=== PATIENT | male | born 1990 | race Two or more races ===

== ENCOUNTER 2024-05-21 02:10 | Inpatient (IN) | payer MEDICAID ==
[~2024-05-21] VITALS: Ht 172.7 cm; Wt 93.7 kg
[2024-05-21 02:39] LABS: COVID AG,FIA SOURCE NASAL SWAB
[2024-05-21 02:40] LABS: BASOPHILS % (AUTO) 0.6 % (0.0-2.0); EOSINOPHILS % (AUTO) 1.8 % (1.0-6.0); HEMATOCRIT 43.2 % (41-53); HEMOGLOBIN 14.6 g/dL (13.5-17.5); LYMPHOCYTES % (AUTO) 22.8 % (22.0-44.0); MEAN CORPUSCULAR HEMOGLOBIN 29.6 pg (26.0-34.0); MEAN CORPUSCULAR HGB CONC 33.8 G/dL (31.0-37.0); MEAN CORPUSCULAR VOLUME 88 fL (80-100); MONOCYTES # (AUTO) 0.5 K/uL (0.1-1.0); MONOCYTES % (AUTO) 5.7 % (2.0-9.0); NEUTROPHILS % (AUTO) 69.1 % (40.0-70.0); PLATELET COUNT (AUTO) 267 K/uL (150-450); RED BLOOD CELL COUNT(AUTO) 4.94 MIL/uL (4.50-5.90); RED CELL DISTRIBUTION WIDTH 13.1 % (11.5-14.5); WHITE BLOOD COUNT (AUTO) 8.7 K/uL (4.5-11.0)
[2024-05-21] MEDS: LORazepam 2 MG TABLET PO ONE (02:44)
[2024-05-21] MEDS: HALOPERIDOL 5 MG TABLET PO ONE (02:44)
[2024-05-21] MEDS: DiphenhydrAMINE HCL 25 MG CAPSULE PO ONE (02:44)
[2024-05-21 02:52] LABS: ANION GAP 9 mmol/L (8-16); CALCIUM, TOTAL 9.1 mg/dL (8.8-10.5); CARBON DIOXIDE 24 mmol/L (22-29); CHLORIDE 104 mmol/L (98-107); CREATININE 0.73 mg/dL (0.60-1.30); GLOMERULAR FILTR. RATE CALC > 60 mL/min (>60); GLUCOSE,RANDOM 105 mg/dL (70-110); POTASSIUM 3.8 mmol/L (3.5-5.1); SODIUM SERUM 137 mmol/L (136-145); UREA NITROGEN, BLOOD 15 mg/dL (7-18)
[2024-05-21 02:56] LABS: SARS-COV2 (COVID) ANTIGEN,FIA Negative (Negative)
[2024-05-21 02:57] LABS: ALCOHOL, BLOOD (SERUM) < 3 mg/dL (0-10)
[2024-05-21] MEDS ORDERED: ZOLPIDEM TARTRATE 10 MG TABLET PO PRN (03:30)
[2024-05-21 11:26] VITALS: BP 141/78; PULSE 92; RESP 18; TEMP 98.2
[2024-05-21 12:06] VITALS: BP 141/78; PULSE 92; RESP 18; TEMP 98.2; O2SAT 100
[2024-05-21] MEDS ORDERED: GuaiFENesin/D-METHORPHAN [SUGAR-FREE] 200-20MG/10 ML SYRUP UDCUP PO PRN (13:00)
[2024-05-21] MEDS ORDERED: LOPERAMIDE HCL 2 MG CAPSULE PO PRN ×2 (13:00→17:30)
[2024-05-21] MEDS ORDERED: OLANZapine 5 MG RAPDIS TABLET PO PRN (13:00)
[2024-05-21] MEDS: THIAMINE 100 MG TABLET PO SCH (17:11)
[2024-05-21] MEDS ORDERED: CloNIDine HCL 0.1 MG TABLET PO PRN (17:30)
[2024-05-21] MEDS ORDERED: BENZOCAINE/MENTHOL LOZENGE PO PRN (17:30)
[2024-05-21] MEDS ORDERED: ACETAMINOPHEN 325 MG TABLET PO PRN (17:30)
[2024-05-21] MEDS ORDERED: OMEPRAZOLE 20 MG CAPSULE PO PRN (17:30)
[2024-05-21] MEDS ORDERED: DOCUSATE SODIUM 100 MG CAPSULE PO PRN (17:30)
[2024-05-21] MEDS ORDERED: PETROLATUM,WHITE 28 GM JELLY TP PRN (17:30)
[2024-05-21] MEDS ORDERED: ONDANSETRON HCL 4 MG TABLET PO PRN (17:30)
[2024-05-21] MEDS ORDERED: ALBUTEROL SULFATE HFA 90 MCG/PUFF 8 GM INHALER IH PRN (17:30)
[2024-05-21] MEDS ORDERED: BACITRACIN 28 GM OINTMENT TP PRN (17:30)
[2024-05-21] MEDS ORDERED: MAG HYDROX/ALUMINUM HYD/SIMETH ES 30 ML SUSPENSION UDCUP PO PRN (17:30)
[2024-05-21] MEDS ORDERED: MAGNESIUM HYDROXIDE SUSPENSION 30 ML UDCUP PO PRN (17:30)
[2024-05-21] MEDS: CYANOCOBALAMIN 1,000 MCG/ML VIAL IM ONE (18:00)
[2024-05-21 18:26] VITALS: BP 141/78; PULSE 88; RESP 17; TEMP 98.5; O2SAT 100
[2024-05-21] MEDS: HALOPERIDOL 5 MG TABLET PO PRN (18:50)
[2024-05-21] MEDS: LORazepam 2 MG TABLET PO PRN (18:50)
[2024-05-21] MEDS: OLANZapine 5 MG RAPDIS TABLET PO SCH (20:57)
[2024-05-21] MEDS: MELATONIN 5 MG TABLET PO SCH (20:57)
[2024-05-21 20:59] VITALS: BP 119/70; PULSE 72; TEMP 97.3; O2SAT 98
[2024-05-22 08:36] VITALS: BP 128/77; PULSE 62; RESP 17; TEMP 97.8; O2SAT 99
[2024-05-22] MEDS: MULTIVITAMINS WITH MINERALS, THERAPEUTIC TABLET PO SCH (09:30)
[2024-05-22] MEDS: FOLIC ACID 1 MG TABLET PO SCH (09:30)
[2024-05-22] MEDS: NALTREXONE HCL 50 MG TABLET PO SCH (09:30)
[2024-05-22] MEDS: FLUoxetine HCL 20 MG CAPSULE PO SCH (09:31)
[2024-05-22 14:00] VITALS: RESP 18; O2SAT 99
[2024-05-22] MEDS: IBUPROFEN 600 MG TABLET PO PRN (14:00)
[2024-05-22] MEDS: HydrOXYzine PAMOATE 50 MG CAPSULE PO PRN (14:42)
[2024-05-22 15:00] VITALS: RESP 17; O2SAT 99
[2024-05-22] MEDS: MIRTAZAPINE 15 MG TABLET PO SCH (20:35)
[2024-05-22 21:29] VITALS: BP 128/77; PULSE 62; RESP 17; TEMP 97.8; O2SAT 99
[2024-05-23 08:26] VITALS: BP 142/91; PULSE 55; RESP 17; TEMP 96.7; O2SAT 98
[2024-05-23] MEDS: PNEUMOCOCCAL VACCINE POLYVALENT 0.5 ML SYRINGE [PPSV23] IM. ONE (08:38)
[2024-05-23 09:57] LABS: APPEARANCE,URINE CLEAR (CLEAR); BILIRUBIN,URINE NEGATIVE (NEGATIVE); COLOR,URINE LIGHT YELLOW (YELLOW); GLUCOSE, URINE (UA) NEGATIVE (NEGATIVE); KETONES,URINE NEGATIVE (NEGATIVE); LEUKOCYTE ESTERASE ,URINE NEGATIVE (NEGATIVE); NITRATE,URINE NEGATIVE (NEGATIVE); OCCULT BLOOD,URINE TRACE (NEGATIVE); PH,URINE 5.5 (5.0-8.0); PROTEIN,URINE NEGATIVE (NEGATIVE); SPECIFIC GRAVITIY, URINE 1.013 (1.003-1.030); UROBILINOGEN,URINE <=1.0 mg/dL (<=1.0)
[2024-05-23 10:01] LABS: PH,URINE DRUG SCREEN 5.5 (5.0-8.0)
[2024-05-23 10:05] LABS: ALCOHOL, URINE DRUG SCREEN NEGATIVE (NEGATIVE); AMPHET/METH SCREEN,URINE NEGATIVE (NEGATIVE); BARBITURATE SCREEN, URINE NEGATIVE (NEGATIVE); BENZODIAZEPINES SCREEN,URINE NEGATIVE (NEGATIVE); CANNABINOID SCREEN,URINE POSITIVE (NEGATIVE); COCAINE SCREEN,URINE NEGATIVE (NEGATIVE); METHADONE SCREEN, URINE NEGATIVE (NEGATIVE); OPIATE SCREEN,URINE NEGATIVE (NEGATIVE); PHENCYCLIDINE SCREEN,URINE NEGATIVE (NEGATIVE)
[2024-05-23 10:33] LABS: BACTERIA,URINE None Seen /HPF (None Seen); RBC,URINE 0-2 /HPF (0-2); SQUAMOUS EPITHELIAL CELL,UR Rare /LPF (None Seen); WBC,URINE 0-2 /HPF (0-5)
[2024-05-23] MEDS: DIVALPROEX SODIUM 500 MG DR TABLET PO SCH (13:17)
[2024-05-23] MEDS: LITHIUM CARBONATE 300 MG CAPSULE PO SCH (13:17)
[2024-05-23 21:42] VITALS: BP 130/85; PULSE 87; RESP 16; TEMP 97.7; O2SAT 100
[2024-05-24] MEDS ORDERED: DIVA-112 PO (13:51)
[2024-05-24] MEDS ORDERED: LITH300C3 PO (13:53)
== END 2024-05-24 14:25 | disposition home or self-care (01) | DRG 750 ==
LOC: EMS 02:10 → B2S 10:04
PROVIDERS: ADMIT Psychiatry & Neurology Psychiatry; ATTEND Psychiatry & Neurology Psychiatry
PROC: GZHZZZZ Group Psychotherapy (ICD-10-PCS; principal; 2024-05-21)
PROC: GZ51ZZZ Individual Psychotherapy, Behavioral (ICD-10-PCS; 2024-05-21)
DX: F25.9 Schizoaffective disorder, unspecified (principal); R45.851 Suicidal ideations; K59.00 Constipation, unspecified; G47.00 Insomnia, unspecified; Z20.822 Contact with and (suspected) exposure to COVID-19; Z68.31 Body mass index [BMI] 31.0-31.9, adult; F41.9 Anxiety disorder, unspecified; F32.A Depression, unspecified; F17.210 Nicotine dependence, cigarettes, uncomplicated; E66.9 Obesity, unspecified
CPT/HCPCS: 80048; 80307; 81001; 85025; 99285; G0480; J3420; Q9967